=== PATIENT | female | born 1980 | race Two or more races ===

== ENCOUNTER 2017-01-25 16:38 | Emergency (ER) | payer OTHER ==
[~2017-01-25] VITALS: Ht 152.4 cm; Wt 83.8 kg
[~2017-01-25 16:38] MED LIST: BENTYL20 MG PO; BUPROPION XL300 MG PO; ENDOCET 5-3251 EACH PO; HYDROCODON-ACE1 EAC7 PO; IBUPROFEN800 MG PO; IRON18 MG PO; MONISTAT 3200 MG VG; MOTRIN600 MG PO; Motrin PO; PERCOCET 5/31 TABLET PO; PRENATAL VITAM1 EAC3 PO; PRENATAL1 EACH PO; TYLENOL WITH C1 EACH PO; TYLOX1 CAPSULE PO; ZOFRAN ODT4 MG PO; ZOFRAN8 MG PO
[2017-01-25 17:48] LABS: HEMATOCRIT 36.7 % (36.0-46.0); MCH 26.9 PG (29.0-34.0); MCHC 31.6 G/DL (30.0-36.0); MCV 85.2 FL (83-99); MEAN PLAT.VOLUME 10.2 uM^3 (9.5-12.4); PLATELET COUNT 371 K/uL (156-360); RBC DIS.WIDTH-CV 14.1 % (11.8-14.6); RBC DIS.WIDTH-SD 43.7 % (39-53); RED BLOOD COUNT 4.31 M/uL (3.80-5.20); WHITE BLOOD COUNT 8.3 K/uL (4.1-10.2)
[2017-01-25 17:49] LABS: CHLORIDE 104 mEq/L (99-109); POTASSIUM 3.6 mEq/L (3.7-5.4); SODIUM 138 mEq/L (136-147)
[2017-01-25 17:52] LABS: GLUCOSE 93 mg/dL (70-99)
[2017-01-25 17:53] LABS: ANION GAP 10 MEQ/L (2-14)
[2017-01-25 17:54] LABS: TOTAL BILIRUBIN 0.6 mg/dL (0.0-1.0)
[2017-01-25 17:55] LABS: ALKALINE PHOSPHATASE 62 IU/L (3-129); GFR ESTIMATE (CALCULATED) > 59 mL/min/
[2017-01-25 17:56] LABS: UREA NITROGEN (BUN) 8 mg/dL (9-23)
[2017-01-25 17:59] LABS: LIPASE 38 U/L (1.0-51.0)
[2017-01-25 18:05] LABS: QUANTITATIVE HCG < 4.0 MIU/ML
[2017-01-25 20:04] LABS: D-DIMER ELISA 0.19 mg/L FEU (< 0.57)
[2017-01-25 20:12] LABS: ADD MIUA? NO; BILIRUBIN NEGATIVE; BLOOD NEGATIVE; COLOR YELLOW ((YELLOW)); GLUCOSE (STRIP) NEGATIVE; KETONES 20; LEUKOCYTES NEGATIVE; NITRITE NEGATIVE; PROTEIN (STRIP) NEGATIVE; SPECIFIC GRAVITY 1.023 (1.000-1.030); UCUL ADDED? NO; UROBILINOGEN 0.2 MG/DL (0.2-1.0)
[2017-01-25 20:22] LABS: TROP-I INTERPRETATION NEGATIVE; TROPONIN-I < 0.01 ng/mL (0.0-0.30)
[2017-01-25] MEDS ORDERED: MOTRIN800 MG PO (22:09)
[2017-01-25] MEDS ORDERED: NORCO 7.5/321 TABLET PO (22:10)
[2017-01-25 22:52] LABS: TROP-I INTERPRETATION NEGATIVE; TROPONIN-I < 0.01 ng/mL (0.0-0.30)
[2017-01-25 23:03] VITALS: BP 141/87
[2017-01-27 13:24] LABS: CHLAMYDIA TRACHOMATIS NEGATIVE; NEISSERIA GONORRHOEAE NEGATIVE
== END 2017-01-25 23:05 | disposition home or self-care (01) ==
LOC: EME 16:38
PROVIDERS: Physician Assistant
DX: R10.2 Pelvic and perineal pain (principal); D25.2 Subserosal leiomyoma of uterus; N83.201 Unspecified ovarian cyst, right side; R07.89 Other chest pain; R42 Dizziness and giddiness; R51 Headache; R06.00 Dyspnea, unspecified; K59.00 Constipation, unspecified; R35.0 Frequency of micturition; Z87.891 Personal history of nicotine dependence
CPT/HCPCS: 71020; 76856; 80053; 81003; 83690; 84484; 84702; 85027; 85379; 87210; 87491; 87591; 93005; 93975; 99281; 99285; J1885

== ENCOUNTER 2017-05-08 22:46 | Emergency (ER) | payer OTHER ==
[~2017-05-08] VITALS: Ht 152.4 cm; Wt 87.2 kg
[~2017-05-08 22:46] MED LIST changes: +MOTRIN800 MG PO; +NORCO 7.5/321 TABLET PO
[2017-05-09 00:27] LABS: HEMATOCRIT 35.6 % (36.0-46.0); MCH 26.7 PG (29.0-34.0); MCHC 32.6 G/DL (30.0-36.0); MEAN PLAT.VOLUME 10.2 uM^3 (9.5-12.4); PLATELET COUNT 248 K/uL (156-360); RBC DIS.WIDTH-CV 15.8 % (11.8-14.6); RED BLOOD COUNT 4.34 M/uL (3.80-5.20); WHITE BLOOD COUNT 9.1 K/uL (4.1-10.2)
[2017-05-09 00:46] LABS: CHLORIDE 106 mEq/L (99-109); POTASSIUM 3.6 mEq/L (3.7-5.4); SODIUM 135 mEq/L (136-147)
[2017-05-09 00:49] LABS: GLUCOSE 106 mg/dL (70-99)
[2017-05-09 00:50] LABS: ANION GAP 7 MEQ/L (2-14)
[2017-05-09 00:51] LABS: TOTAL BILIRUBIN 0.4 mg/dL (0.0-1.0)
[2017-05-09 00:52] LABS: ALKALINE PHOSPHATASE 54 IU/L (3-129); GFR ESTIMATE (CALCULATED) > 59 mL/min/
[2017-05-09 00:53] LABS: UREA NITROGEN (BUN) 7 mg/dL (9-23)
[2017-05-09 01:03] LABS: ADD MIUA? YES; BILIRUBIN NEGATIVE; BLOOD NEGATIVE; COLOR YELLOW ((YELLOW)); GLUCOSE (STRIP) NEGATIVE; KETONES 5; LEUKOCYTES NEGATIVE; NITRITE NEGATIVE; PROTEIN (STRIP) 30; SPECIFIC GRAVITY 1.027 (1.000-1.030); UROBILINOGEN 0.2 MG/DL (0.2-1.0)
[2017-05-09 01:19] LABS: QUANTITATIVE HCG 144447.3 MIU/ML
[2017-05-09 01:21] LABS: BACTERIA RARE /HPF; EPITHELIAL CELLS 1+ /HPF; MUCUS 1+ /LPF; RED BLOOD CELLS 0-5 /HPF (0-5); UCUL ADDED? NO; WHITE BLOOD CELLS 0-5 /HPF (0-5)
[2017-05-09 03:15] VITALS: BP 136/87
== END 2017-05-09 03:16 | disposition home or self-care (01) ==
LOC: EME 22:46
PROVIDERS: Physician Assistant
DX: O34.11 Maternal care for benign tumor of corpus uteri, first trimester (principal); D25.9 Leiomyoma of uterus, unspecified; M54.5 Low back pain; R11.0 Nausea; O09.521 Supervision of elderly multigravida, first trimester; Z3A.10 10 weeks gestation of pregnancy
CPT/HCPCS: 76801; 80053; 81003; 84702; 85027; 99281; 99285; J0500; J0595; J7030

== ENCOUNTER 2017-05-13 04:50 | Emergency (ER) | payer OTHER ==
[~2017-05-13] VITALS: Ht 152.4 cm; Wt 89.1 kg
[2017-05-13 05:18] LABS: MCH 26.6 PG (29.0-34.0); MCHC 32.6 G/DL (30.0-36.0); MCV 81.8 FL (83-99); PLATELET COUNT 237 K/uL (156-360); RBC DIS.WIDTH-CV 16.1 % (11.8-14.6); RBC DIS.WIDTH-SD 47.5 % (39-53); RED BLOOD COUNT 3.79 M/uL (3.80-5.20); WHITE BLOOD COUNT 7.6 K/uL (4.1-10.2)
[2017-05-13 05:27] LABS: CHLORIDE 107 mEq/L (99-109); POTASSIUM 3.4 mEq/L (3.7-5.4); SODIUM 135 mEq/L (136-147)
[2017-05-13 05:30] LABS: GLUCOSE 128 mg/dL (70-99)
[2017-05-13 05:31] LABS: ANION GAP 7 MEQ/L (2-14)
[2017-05-13 05:33] LABS: ALKALINE PHOSPHATASE 49 IU/L (3-129); GFR ESTIMATE (CALCULATED) > 59 mL/min/
[2017-05-13 05:34] LABS: UREA NITROGEN (BUN) 6 mg/dL (9-23)
[2017-05-13 05:36] LABS: TOTAL BILIRUBIN 0.3 mg/dL (0.0-1.0)
[2017-05-13 05:37] LABS: LIPASE 45 U/L (1.0-51.0)
[2017-05-13 06:00] LABS: QUANTITATIVE HCG 122328.3 MIU/ML
[2017-05-13] MEDS ORDERED: DICLEGIS DR 101 EACH PO (06:42)
[2017-05-13 08:30] VITALS: BP 115/66
== END 2017-05-13 09:56 | disposition home or self-care (01) ==
LOC: EME 04:50
DX: O26.891 Other specified pregnancy related conditions, first trimester (principal); O21.9 Vomiting of pregnancy, unspecified; R07.9 Chest pain, unspecified; Z3A.11 11 weeks gestation of pregnancy
CPT/HCPCS: 80053; 83690; 84702; 85027; 93005; 99281; 99284

== ENCOUNTER 2017-05-14 07:16 | Emergency (ER) | payer OTHER ==
[~2017-05-14] VITALS: Ht 152.4 cm; Wt 88.3 kg
[~2017-05-14 07:16] MED LIST changes: +DICLEGIS DR 101 EACH PO
[2017-05-14 07:51] LABS: HEMATOCRIT 33.3 % (36.0-46.0); MCH 27.1 PG (29.0-34.0); MEAN PLAT.VOLUME 10.5 uM^3 (9.5-12.4); PLATELET COUNT 241 K/uL (156-360); RBC DIS.WIDTH-CV 16.1 % (11.8-14.6); RBC DIS.WIDTH-SD 48.2 % (39-53); RED BLOOD COUNT 4.06 M/uL (3.80-5.20); WHITE BLOOD COUNT 7.5 K/uL (4.1-10.2)
[2017-05-14 08:27] LABS: ADD MIUA? YES; BILIRUBIN NEGATIVE; BLOOD NEGATIVE; COLOR YELLOW ((YELLOW)); GLUCOSE (STRIP) NEGATIVE; KETONES NEGATIVE; LEUKOCYTES NEGATIVE; NITRITE NEGATIVE; PROTEIN (STRIP) NEGATIVE; SPECIFIC GRAVITY 1.017 (1.000-1.030); UROBILINOGEN 0.2 MG/DL (0.2-1.0)
[2017-05-14 08:57] LABS: BACTERIA RARE /HPF; CALCIUM OXALATE CRYSTALS 1+ /HPF; EPITHELIAL CELLS 2+ /HPF; MUCUS TRACE /LPF; RED BLOOD CELLS 0-5 /HPF (0-5); UCUL ADDED? NO; WHITE BLOOD CELLS 0-5 /HPF (0-5)
[2017-05-14 11:20] VITALS: BP 135/88
== END 2017-05-14 11:21 | disposition home or self-care (01) ==
LOC: EME 07:16
DX: O20.9 Hemorrhage in early pregnancy, unspecified (principal); O09.521 Supervision of elderly multigravida, first trimester; Z3A.12 12 weeks gestation of pregnancy
CPT/HCPCS: 81003; 84702; 85027; 99281; 99284

== ENCOUNTER 2017-07-28 04:27 | Emergency (ER) | payer OTHER ==
[~2017-07-28] VITALS: Ht 152.4 cm; Wt 88.7 kg
[2017-07-28 06:18] LABS: POINT-OF-CARE METER ID UU13113747
[2017-07-28 06:46] LABS: EOSINOPHIL (%) 2.6 % (0-5); EOSINOPHIL COUNT 0.3 K/uL (0-0.3); HEMATOCRIT 28.4 % (36.0-46.0); IMMATURE GRANULOCYTE (%) 0.4 % (0.0-0.7); INSTRUMENT ABS NEUTROPHIL CT 7.2 K/uL; LYMPHOCYTE COUNT 1.7 K/uL (1.0-2.8); MCH 26.7 PG (29.0-34.0); MCHC 31.7 G/DL (30.0-36.0); MCV 84.3 FL (83-99); MEAN PLAT.VOLUME 10.9 uM^3 (9.5-12.4); MONOCYTE (%) 6.2 % (3-12); MONOCYTE COUNT 0.6 K/uL (0-0.8); NEUTROPHIL (%) 73.8 % (45-76); NEUTROPHIL COUNT 7.2 K/uL (1.8-6.4); PLATELET COUNT 192 K/uL (156-360); RBC DIS.WIDTH-CV 15.1 % (11.8-14.6); RBC DIS.WIDTH-SD 45.9 % (39-53); RED BLOOD COUNT 3.37 M/uL (3.80-5.20); WHITE BLOOD COUNT 9.8 K/uL (4.1-10.2)
[2017-07-28 06:57] LABS: CHLORIDE 109 mEq/L (99-109); POTASSIUM 3.4 mEq/L (3.7-5.4); SODIUM 137 mEq/L (136-147)
[2017-07-28 06:59] LABS: GLUCOSE 94 mg/dL (70-99)
[2017-07-28 07:01] LABS: ANION GAP 10 MEQ/L (2-14)
[2017-07-28 07:03] LABS: GFR ESTIMATE (CALCULATED) > 59 mL/min/
[2017-07-28 07:04] LABS: UREA NITROGEN (BUN) 5 mg/dL (9-23)
[2017-07-28 07:27] LABS: ADD MIUA? YES; BILIRUBIN NEGATIVE; BLOOD NEGATIVE; COLOR YELLOW ((YELLOW)); GLUCOSE (STRIP) NEGATIVE; KETONES NEGATIVE; LEUKOCYTES NEGATIVE; NITRITE NEGATIVE; PROTEIN (STRIP) NEGATIVE; UROBILINOGEN 0.2 MG/DL (0.2-1.0)
[2017-07-28 07:44] LABS: BACTERIA RARE /HPF; CALCIUM OXALATE CRYSTALS 2+ /HPF; EPITHELIAL CELLS RARE /HPF; MUCUS TRACE /LPF; RED BLOOD CELLS 0-5 /HPF (0-5); UCUL ADDED? NO; WHITE BLOOD CELLS 0-5 /HPF (0-5)
[2017-07-28] MEDS ORDERED: PRENATAL TABLE1 EAC3 PO (08:43)
[2017-07-28] MEDS ORDERED: CALCIUM 500 MG1 EACH PO (08:44)
[2017-07-28] MEDS ORDERED: IRON18 MG PO (08:44)
[2017-07-28 09:51] VITALS: BP 116/68
== END 2017-07-28 09:57 | disposition home or self-care (01) ==
LOC: EME 04:27
PROVIDERS: Emergency Medicine
DX: O21.2 Late vomiting of pregnancy (principal); O99.012 Anemia complicating pregnancy, second trimester; D64.9 Anemia, unspecified; Z3A.22 22 weeks gestation of pregnancy
CPT/HCPCS: 80048; 81003; 82948; 85025; 99281; 99285; J2405; J7030

== ENCOUNTER 2017-08-20 15:10 | Outpatient (CLI) | payer OTHER ==
[~2017-08-20] VITALS: Ht 152.4 cm; Wt 89.1 kg
[~2017-08-20 15:10] MED LIST changes: +CALCIUM 500 MG1 EACH PO; +PRENATAL TABLE1 EAC3 PO
[2017-08-20] MEDS ORDERED: HYDROXYZINE HCL50 MG PO (15:41)
[2017-08-20 15:44] VITALS: BP 121/59
[2017-08-20] MEDS ORDERED: FIORICET 50-301 EAC1 PO (16:31)
[2017-08-21] MEDS ORDERED: FLAGYL500 MG PO (08:53)
== END 2017-08-20 16:40 | disposition home or self-care (01) ==
LOC: LDRP-OP 15:10 → 2WEST 15:11
DX: O26.892 Other specified pregnancy related conditions, second trimester (principal); R10.9 Unspecified abdominal pain; G43.909 Migraine, unspecified, not intractable, without status migrainosus; O34.219 Maternal care for unspecified type scar from previous cesarean delivery; O09.522 Supervision of elderly multigravida, second trimester; Z3A.25 25 weeks gestation of pregnancy
CPT/HCPCS: 59025; G0378

== ENCOUNTER 2017-08-21 02:21 | Outpatient (CLI) | payer OTHER ==
[~2017-08-21 02:21] MED LIST changes: +FIORICET 50-301 EAC1 PO; +HYDROXYZINE HCL50 MG PO
[2017-08-21 03:02] VITALS: BP 123/58
[2017-08-21 05:11] LABS: ADD MIUA? NO; BILIRUBIN NEGATIVE; BLOOD NEGATIVE; COLOR YELLOW ((YELLOW)); GLUCOSE (STRIP) NEGATIVE; KETONES NEGATIVE; LEUKOCYTES NEGATIVE; NITRITE NEGATIVE; PROTEIN (STRIP) NEGATIVE; SPECIFIC GRAVITY 1.021 (1.000-1.030)
[2017-08-21 06:30] LABS: CANDIDA DNA PROBE NEGATIVE; GARDNERELLA DNA PROBE POSITIVE; INTERNAL CONTROL VALID? YES
[2017-08-21 07:17] VITALS: BP 123/68
[2017-08-21 08:39] LABS: EOSINOPHIL (%) 1.5 % (0-5); EOSINOPHIL COUNT 0.2 K/uL (0-0.3); HEMATOCRIT 28.1 % (36.0-46.0); IMMATURE GRANULOCYTE (%) 0.4 % (0.0-0.7); INSTRUMENT ABS NEUTROPHIL CT 7.5 K/uL; LYMPHOCYTE COUNT 1.7 K/uL (1.0-2.8); MCH 26.5 PG (29.0-34.0); MCHC 31.7 G/DL (30.0-36.0); MCV 83.6 FL (83-99); MEAN PLAT.VOLUME 10.8 uM^3 (9.5-12.4); MONOCYTE (%) 5.3 % (3-12); MONOCYTE COUNT 0.5 K/uL (0-0.8); NEUTROPHIL (%) 75.1 % (45-76); NEUTROPHIL COUNT 7.5 K/uL (1.8-6.4); PLATELET COUNT 190 K/uL (156-360); RBC DIS.WIDTH-CV 14.9 % (11.8-14.6); RBC DIS.WIDTH-SD 45.4 % (39-53); RED BLOOD COUNT 3.36 M/uL (3.80-5.20); WHITE BLOOD COUNT 9.9 K/uL (4.1-10.2)
[2017-08-21] MEDS ORDERED: FLAGYL500 MG PO (08:53)
[2017-08-21 11:12] VITALS: BP 113/56
[2017-08-21 12:14] LABS: AMPHETAMINE NEGATIVE (500 ng/mL); BARBITURATES PRESUMPTIVE POSITIVE (200 ng/mL); BENZODIAZEPINES NEGATIVE (150 ng/mL); COCAINE NEGATIVE (150 ng/mL); INTERNAL CONTROLS VALID? YES; METHADONE NEGATIVE (200 ng/mL); METHAMPHETAMINE NEGATIVE (500 ng/mL); OPIATES (MORPHINE) NEGATIVE (100 ng/mL); OXYCODONE NEGATIVE (100 ng/mL); PHENCYCLIDINE NEGATIVE (25 ng/mL); PROPOXYPHENE NEGATIVE (300 ng/mL); THC CANNABINOIDS NEGATIVE (50 ng/mL); TRICYCLIC ANTIDEPRESSANTS NEGATIVE (300 ng/mL)
[2017-08-21 12:15] LABS: ADD MEDTOX COMMENT Y
== END 2017-08-21 11:57 | disposition home or self-care (01) ==
LOC: LDRP-OP 02:21 → 2WEST 02:22 → LDRP-OP 01-01 18:27
PROVIDERS: Advanced Practice Midwife
DX: O60.02 Preterm labor without delivery, second trimester (principal); Z3A.25 25 weeks gestation of pregnancy; O24.410 Gestational diabetes mellitus in pregnancy, diet controlled
CPT/HCPCS: 59025; 81003; 84999; 85025; 87086; 87480; 87510; 87660; G0378

== ENCOUNTER 2017-10-07 01:37 | Outpatient (CLI) | payer OTHER ==
[~2017-10-07 01:37] MED LIST changes: +FLAGYL500 MG PO
[2017-10-07 01:56] VITALS: BP 134/72
[2017-10-07] MEDS ORDERED: FERROCITE324 MG PO (03:44)
[2017-10-07 04:10] LABS: EOSINOPHIL (%) 1.2 % (0-5); EOSINOPHIL COUNT 0.1 K/uL (0-0.3); HEMATOCRIT 24.6 % (36.0-46.0); IMMATURE GRANULOCYTE (%) 0.5 % (0.0-0.7); IMMATURE GRANULOCYTE COUNT 0.1 K/uL; INSTRUMENT ABS NEUTROPHIL CT 8.4 K/uL; LYMPHOCYTE COUNT 2.3 K/uL (1.0-2.8); MCH 24.5 PG (29.0-34.0); MCHC 31.3 G/DL (30.0-36.0); MCV 78.3 FL (83-99); MEAN PLAT.VOLUME 10.2 uM^3 (9.5-12.4); MONOCYTE (%) 6.2 % (3-12); MONOCYTE COUNT 0.7 K/uL (0-0.8); NEUTROPHIL (%) 72.5 % (45-76); NEUTROPHIL COUNT 8.4 K/uL (1.8-6.4); NRBC (%) 0.2 /100 WBC (0-0); PLATELET COUNT 180 K/uL (156-360); RBC DIS.WIDTH-CV 16.1 % (11.8-14.6); RBC DIS.WIDTH-SD 46.2 % (39-53); RED BLOOD COUNT 3.14 M/uL (3.80-5.20); WHITE BLOOD COUNT 11.6 K/uL (4.1-10.2)
[2017-10-07 07:03] LABS: Estimated Average Glucose 123 mg/dL (70-123); HEMOGLOBIN A1c (GLYCOHEMOGLOB) 5.9 % HGB (Below 5.7)
[2017-10-07 13:39] LABS: POINT-OF-CARE METER ID UU13113692
== END 2017-10-07 04:40 | disposition home or self-care (01) ==
LOC: LDRP-OP 01:37 → 2WEST 01:38 → LDRP-OP 12-17 12:28
PROVIDERS: Advanced Practice Midwife; Obstetrics & Gynecology
DX: O36.8130 Decreased fetal movements, third trimester, not applicable or unspecified (principal); Z3A.32 32 weeks gestation of pregnancy
CPT/HCPCS: 59025; 82948; 83036; 85025; G0378

== ENCOUNTER 2018-01-18 00:19 | Emergency (ER) | payer OTHER ==
[~2018-01-18] VITALS: Ht 152.4 cm; Wt 90.2 kg
[~2018-01-18 00:19] MED LIST changes: +FERROCITE324 MG PO
[2018-01-18 00:29] VITALS: BP 156/88
[2018-01-18] MEDS ORDERED: NORCO 5/3251 TABLET PO (01:42)
== END 2018-01-18 02:06 | disposition home or self-care (01) ==
LOC: EME 00:19
DX: M25.561 Pain in right knee (principal); M25.461 Effusion, right knee; M79.7 Fibromyalgia
CPT/HCPCS: 73564; 99281; 99283